=== PATIENT | female | born 1960 | race Caucasian/White ===

== ENCOUNTER 2017-10-22 14:16 | Emergency (ER) | payer OTHER ==
[~2017-10-22] VITALS: Ht 154.9 cm; Wt 137.0 kg
[2017-10-22 14:19] VITALS: TEMP 36.2; Ht 154.9 cm; Wt 137.0 kg
[2017-10-22] MEDS ORDERED: SODIUM CHLORIDE 0.9% 1000ML 1,000 ML IV STA (14:30)
[2017-10-22] MEDS ORDERED: ONDANSETRON INJ 2 MG/ML 2 ML VIAL IV STA ×2 (14:30→18:19)
[2017-10-22] MEDS ORDERED: MoRPHine SULFATE 10 MG/ML CARP/VIAL IV STA ×2 (14:30→18:19)
[2017-10-22] MEDS ORDERED: CZR50 PO (15:00)
[2017-10-22] MEDS ORDERED: FURO-85 PO (15:00)
[2017-10-22 15:12] LABS: BASO % 0.2 %; BASO ABS # 0.02 K/uL (0-0.2); EOS % 0.5 %; EOS ABS # 0.04 K/uL (0-0.5); HEMATOCRIT 41.5 % (37-47); HEMOGLOBIN 14.8 g/dL (12.0-16.0); IG# 0.01 K/uL (0.00-0.02); LYMPH % 14.1 %; LYMPH ABS # 1.21 K/uL (1.2-3.4); MEAN CELL VOLUME 89.6 fL (80-100); MEAN CORPUSCULAR HGB CONC 35.7 g/dl (32-36); MEAN PLATELET VOLUME 11.1 fL (7.4-10.4); MONO % 4.1 %; MONO ABS # 0.35 K/uL (0.11-0.59); NEUT ABS # 6.94 K/uL (1.4-6.5); PLATELET COUNT 266 K/uL (130-400); RED CELL DISTRIBUTION WIDTH CV 12.2 % (11.5-14.5); RED CELL DISTRIBUTION WIDTH SD 39.7 fL (36.4-46.3); WHITE BLOOD COUNT 8.57 K/uL (4.8-10.8)
[2017-10-22 15:32] LABS: ALBUMIN 3.4 gm/dl (3.4-5.0); CALCIUM 9.4 mg/dl (8.5-10.1); CREATININE 0.76 mg/dl (0.60-1.20); POTASSIUM 3.4 mmol/L (3.5-5.1)
[2017-10-22 15:34] LABS: TOTAL PROTEIN 7.8 gm/dl (6.4-8.2)
--- NOTE | 2017-10-22 15:57 | DIAGNOSTIC IMAGING REPORT ---
ABDOMEN 2VIEW W/PA CHEST RTN CLINICAL HISTORY: 57 years-old Female presenting with abdominal pain/nausea/vomiting. TECHNIQUE: PA view of the chest and supine and upright views of the abdomen were obtained. COMPARISON: None. FINDINGS: Image quality is degraded by patient body habitus. Atherosclerosis of the aortic arch. Cardiac silhouette top normal in size. Lungs and pleural spaces clear. Cholecystectomy clips noted. Evidence of prior hernia repair with extensive coil bjorn. Additional surgical clip projects over the midline pelvis. A loop of small bowel in the right lower quadrant has an apparent diameter over 4 cm this is likely affected by magnification. No other pathologically dilated bowel. No gross pneumoperitoneum. Allowing for bowel gas and stool, no calcifications to suggest nephrolithiasis. Degenerative changes of the spine. IMPRESSION: 1. No acute cardiopulmonary disease. 2. Apparent dilated small bowel in the right lower quadrant. This is likely exaggerated due to magnification. No convincing evidence of bowel obstruction or free air allowing for image quality. Electronically signed by: Olu Gann M.D. 10/22/2017 3:56 PM Dictated Date/Time: 10/22/2017 3:53 PM
--- NOTE | 2017-10-22 16:29 | EMERGENCY ROOM VISIT NOTE ---
ED Visit Note First contact with patient: 14:23 I did evaluate and examine this patient myself. I did guide management for the patient. I agree with the APC's assessment as discussed. Please see the APC's dictation for further details. I did independently review the x-rays and blood work. There is no evidence of obstruction on x-ray but she does have tenderness over her right lower quadrant. We will obtain a CT scan for further evaluation.
--- NOTE | 2017-10-22 20:00 | DIAGNOSTIC IMAGING REPORT ---
CT SCAN OF THE ABDOMEN AND PELVIS WITHOUT CONTRAST CLINICAL HISTORY: Right lower quadrant abdominal pain. Hernia. History of bowel obstruction. COMPARISON STUDY: Conventional radiographic study dated 10/22/2017 TECHNIQUE: CT scan of the abdomen and pelvis was performed from the lung bases to the proximal femurs. Images are reviewed in the axial, sagittal, and coronal planes. IV contrast was not administered for this examination. A dose lowering technique was utilized adhering to the principles of ALARA. CT DOSE: 1960.29 mGy.cm FINDINGS: Lower chest: The heart is normal in size and configuration, without pericardial effusion. The lung bases and pleural spaces are clear. Liver: The unenhanced liver is normal in size, contour, and attenuation. There is no intrahepatic biliary ductal dilatation. Gallbladder: Surgically absent Spleen: Normal in size and attenuation. Pancreas: Unremarkable. Adrenal glands: Unremarkable. Kidneys: No renal, ureteral, or bladder calculi are visualized. Bowel: There are no transition zones to indicate bowel obstruction. There is a large ventral hernia with a neck measuring 7.5 cm. This contains both colonic and small bowel loops. There is evidence for trace fluid within the hernia sac, as well as moderate bowel wall thickening involving the distal ileum. There is tethering of the ascending colon as it exits the hernia sac. Significant obstruction is unlikely to be present as contrast is visualized within the ascending colon distal to the hernia sac. Peritoneum: There is no intraperitoneal free air or abdominal ascites. Vasculature: The abdominal aorta is normal in course and caliber. Adenopathy: None. Pelvic viscera: The bladder, and pelvic viscera are unremarkable. Skeletal structures: No destructive osseous lesions are seen. IMPRESSION: 1. Large ventral hernia containing both colon and small bowel loops. 2. There is a small amount of fluid within the hernia sac, and there is moderate bowel wall thickening involving distal ileal loops within the hernia sac. The findings are indicative of a nonspecific enteritis. 3. No evidence of free intraperitoneal air 4. No renal, ureteral, or bladder calculi are visualized. Electronically signed by: Atilio Hankins M.D. 10/22/2017 7:59 PM Dictated Date/Time: 10/22/2017 7:49 PM
[2017-10-22] MEDS ORDERED: ONDANSETRON HOME PACK 4MG OD TAB PO ONE (20:15)
[2017-10-22] MEDS ORDERED: ONDA4TAB10 SL (20:18)
--- NOTE | 2017-10-22 20:20 | EMERGENCY ROOM VISIT NOTE ---
History First contact with patient: 14:23 Chief Complaint: DIARRHEA Stated Complaint: DIARRHEA,VOMITING,STOMACH PAINS Nursing Triage Summary: pt c/o diffuse abd cramping and n/v/d since eating frozen dinner last night and is concerned for food poisoning History of Present Illness The patient is a 57 year old female who presents to the Emergency Room with complaints of nausea vomiting and diarrhea for the past 24 hours. The patient states that she ate a frozen bag of broccoli yesterday morning and within 15 minutes she started with her symptoms. The patient denies having abdominal pain until she started vomiting. She thinks that her stomach is sore from the vomiting. She also states that she has a hernia in the right lower quadrant also tends to bother her when she vomits. The patient also admits to just watery diarrhea. She does admit to having a bowel obstruction in the past. The patient denies any fever. The patient denies any urinary symptoms of frequency, urgency or dysuria. The patient denies any history of kidney stones. The patient denies any back pain. Review of Systems 10 system review was performed and was negative unless stated otherwise history of present illness. Past Medical/Surgical History Bowel obstruction, hypertension, hernia, hysterectomy, cholecystectomy, knee replacement, breast reduction Social History Smoking Status: Never Smoker Smokeless Tobacco Use: No Alcohol Use: none Drug Use: none Housing Status: lives with family ([facility]) Occupation Status: unemployed (. He is as he was here) Current/Historical Medications Scheduled Furosemide (Lasix), 20 MG PO DAILY Losartan Potassium (Losartan Potassium), 50 MG PO DAILY Physical Exam Vital Signs Date Time Temp Pulse Resp B/P (MAP) Pulse Ox O2 Delivery O2 Flow Rate FiO2 10/22/17 18:16 71 20 151/83 99 Room Air 10/22/17 16:31 60 20 159/81 100 Room Air 10/22/17 14:19 36.2 80 18 175/123 97 Room Air Physical Exam GENERAL: Morbidly obese 57-year-old white female appears in no acute distress. MENTAL Status: Alert and oriented 3. MOUTH: Mucosa is dry NECK: Supple, no lymphadenopathy noted. No carotid bruits noted. LUNGS: Clear auscultation without wheezes rales or rhonchi. CARDIAC: Regular rate and rhythm without murmur. Pulses is full and equal throughout. BACK: No CVA tenderness noted. ABDOMEN: The patient has a large hernia in the right lower quadrant. Positive bowel sounds all 4 quadrants. Soft, mild generalized tenderness to palpation throughout. EXTREMITIES: No cyanosis or edema noted. Medical Decision & Procedures ER Provider Diagnostic Interpretation: CT SCAN OF THE ABDOMEN AND PELVIS WITHOUT CONTRAST CLINICAL HISTORY: Right lower quadrant abdominal pain. Hernia. History of bowel obstruction. COMPARISON STUDY: Conventional radiographic study dated 10/22/2017 TECHNIQUE: CT scan of the abdomen and pelvis was performed from the lung bases to the proximal femurs. Images are reviewed in the axial, sagittal, and coronal planes. IV contrast was not administered for this examination. A dose lowering technique was utilized adhering to the principles of ALARA. CT DOSE: 1960.29 mGy.cm FINDINGS: Lower chest: The heart is normal in size and configuration, without pericardial effusion. The lung bases and pleural spaces are clear. Liver: The unenhanced liver is normal in size, contour, and attenuation. There is no intrahepatic biliary ductal dilatation. Gallbladder: Surgically absent Spleen: Normal in size and attenuation. Pancreas: Unremarkable. Adrenal glands: Unremarkable. Kidneys: No renal, ureteral, or bladder calculi are visualized. Bowel: There are no transition zones to indicate bowel obstruction. There is a large ventral hernia with a neck measuring 7.5 cm. This contains both colonic and small bowel loops. There is evidence for trace fluid within the hernia sac, as well as moderate bowel wall thickening involving the distal ileum. There is tethering of the ascending colon as it exits the hernia sac. Significant obstruction is unlikely to be present as contrast is visualized within the ascending colon distal to the hernia sac. Peritoneum: There is no intraperitoneal free air or abdominal ascites. Vasculature: The abdominal aorta is normal in course and caliber. Adenopathy: None. Pelvic viscera: The bladder, and pelvic viscera are unremarkable. Skeletal structures: No destructive osseous lesions are seen. IMPRESSION: 1. Large ventral hernia containing both colon and small bowel loops. 2. There is a small amount of fluid within the hernia sac, and there is moderate bowel wall thickening involving distal ileal loops within the hernia sac. The findings are indicative of a nonspecific enteritis. 3. No evidence of free intraperitoneal air 4. No renal, ureteral, or bladder calculi are visualized. Electronically signed by: Atilio Hankins M.D. 10/22/2017 7:59 PM Dictated Date/Time: 10/22/2017 7:49 PM ABDOMEN 2VIEW W/MARY CHEST RTN CLINICAL HISTORY: 57 years-old Female presenting with abdominal pain/nausea/vomiting. TECHNIQUE: PA view of the chest and supine and upright views of the abdomen were obtained. COMPARISON: None. FINDINGS: Image quality is degraded by patient body habitus. Atherosclerosis of the aortic arch. Cardiac silhouette top normal in size. Lungs and pleural spaces clear. Cholecystectomy clips noted. Evidence of prior hernia repair with extensive coil bjorn. Additional surgical clip projects over the midline pelvis. A loop of small bowel in the right lower quadrant has an apparent diameter over 4 cm this is likely affected by magnification. No other pathologically dilated bowel. No gross pneumoperitoneum. Allowing for bowel gas and stool, no calcifications to suggest nephrolithiasis. Degenerative changes of the spine. IMPRESSION: 1. No acute cardiopulmonary disease. 2. Apparent dilated small bowel in the right lower quadrant. This is likely exaggerated due to magnification. No convincing evidence of bowel obstruction or free air allowing for image quality. Electronically signed by: Olu Gann M.D. 10/22/2017 3:56 PM Dictated Date/Time: 10/22/2017 3:53 PM The status of this report is Signed. Draft = Not yet reviewed or approved by Radiologist. Signed = Reviewed and approved by Radiologist. <AttendingPhy></AttendingPhy> <FamilyPhy>No Doctor, Assigned</FamilyPhy> < PrimaryPhy>No Doctor, Assigned</PrimaryPhy> <UnitNumber>[id number]</UnitNumber> <VisitNumber>[id number]</VisitNumber> <PatientName>BELLA OLGUIN</ PatientName> <DateOfBirth>1960</DateOfBirth> <Location>[facility]</Location> < ServiceDate>10/22/17</ServiceDate> <MNE>ESINDI</MNE> <OrderingPhy>Shonda Lizarraga PA-C</OrderingPhy> <OrderingPhyMNE>f rep ord dr lezama</OrderingPhyMNE> < DictatingPhyMNE>f rep dict dr lezama</DictatingPhyMNE> <CCListMNE>f rep ct mne</ CCListMNE> <AdmittingPhyMNE>f pt admit dr lezama</AdmittingPhyMNE> <AttendingPhyMNE >f pt attend dr lezama</AttendingPhyMNE> <ConsultingPhyMNE>f pt consult dr lezama</ConsultingPhyMNE> <FamilyPhyMNE>f pt fam dr lezama</FamilyPhyMNE> <OtherPhyMNE>f pt other dr lezama</OtherPhyMNE> < PrimaryPhyMNE>f pt prim care dr lezama</PrimaryPhyMNE> <ReferringPhyMNE>f pt referring Laboratory Results 10/22/17 14:54 Red Blood Count 4.63, Mean Corpuscular Volume 89.6, Mean Corpuscular Hemoglobin 32.0, Mean Corpuscular Hemoglobin Concent 35.7, Mean Platelet Volume 11.1, Neutrophils (%) (Auto) 81.0, Lymphocytes (%) (Auto) 14.1, Monocytes (%) (Auto) 4.1, Eosinophils (%) (Auto) 0.5, Basophils (%) (Auto) 0.2, Neutrophils # (Auto) 6.94, Lymphocytes # (Auto) 1.21, Monocytes # (Auto) 0.35, Eosinophils # (Auto) 0.04, Basophils # (Auto) 0.02 10/22/17 14:54 Test 10/22/17 14:54 10/22/17 16:05 White Blood Count 8.57 K/uL (4.8-10.8) Red Blood Count 4.63 M/uL (4.2-5.4) Hemoglobin 14.8 g/dL (12.0-16.0) Hematocrit 41.5 % (37-47) Mean Corpuscular Volume 89.6 fL (80-100) Mean Corpuscular Hemoglobin 32.0 pg (25-34) Mean Corpuscular Hemoglobin Concent 35.7 g/dl (32-36) Platelet Count 266 K/uL (130-400) Mean Platelet Volume 11.1 fL (7.4-10.4) Neutrophils (%) (Auto) 81.0 % Lymphocytes (%) (Auto) 14.1 % Monocytes (%) (Auto) 4.1 % Eosinophils (%) (Auto) 0.5 % Basophils (%) (Auto) 0.2 % Neutrophils # (Auto) 6.94 K/uL (1.4-6.5) Lymphocytes # (Auto) 1.21 K/uL (1.2-3.4) Monocytes # (Auto) 0.35 K/uL (0.11-0.59) Eosinophils # (Auto) 0.04 K/uL (0-0.5) Basophils # (Auto) 0.02 K/uL (0-0.2) RDW Standard Deviation 39.7 fL (36.4-46.3) RDW Coefficient of Variation 12.2 % (11.5-14.5) Immature Granulocyte % (Auto) 0.1 % Immature Granulocyte # (Auto) 0.01 K/uL (0.00-0.02) Anion Gap 7.0 mmol/L (3-11) Est Creatinine Clear Calc Drug Dose 106.3 ml/min Estimated GFR () 100.2 Estimated GFR (Non- 86.5 BUN/Creatinine Ratio 14.4 (10-20) Calcium Level 9.4 mg/dl (8.5-10.1) Total Bilirubin 0.7 mg/dl (0.2-1) Direct Bilirubin 0.1 mg/dl (0-0.2) Aspartate Amino Transf (AST/SGOT) 16 U/L (15-37) Alanine Aminotransferase (ALT/SGPT) 33 U/L (12-78) Alkaline Phosphatase 111 U/L (45-117) Total Protein 7.8 gm/dl (6.4-8.2) Albumin 3.4 gm/dl (3.4-5.0) Lipase 64 U/L (73-393) Urine Color YELLOW Urine Appearance CLEAR (CLEAR) Urine pH 7.5 (4.5-7.5) Urine Specific [place] 1.009 (1.000-1.030) Urine Protein NEG (NEG) Urine Glucose (UA) NEG (NEG) Urine Ketones NEG (NEG) Urine Occult Blood NEG (NEG) Urine Nitrite NEG (NEG) Urine Bilirubin NEG (NEG) Urine Urobilinogen NEG (NEG) Urine Leukocyte Esterase NEG (NEG) Medications Administered Medications (Trade) Dose Ordered Sig/Svetlana Route Start Time Stop Time Status Last Admin Dose Admin Morphine Sulfate (MoRPHine SULFATE INJ) 6 mg NOW STAT IV 10/22/17 14:30 10/22/17 14:34 DC 10/22/17 15:04 6 MG Ondansetron HCl (Zofran Inj) 4 mg NOW STAT IV 10/22/17 14:30 10/22/17 14:34 DC 10/22/17 15:03 4 MG Sodium Chloride 1,000 ml @ 999 mls/hr Q1H1M STAT IV 10/22/17 14:30 10/22/17 15:30 DC 10/22/17 15:00 999 MLS/HR Morphine Sulfate (MoRPHine SULFATE INJ) 6 mg NOW STAT IV 10/22/17 18:19 10/22/17 18:20 DC 10/22/17 18:25 6 MG Ondansetron HCl (Zofran Inj) 4 mg NOW STAT IV 10/22/17 18:19 10/22/17 18:20 DC 10/22/17 18:25 4 MG ED Course The patient was evaluated. IV access was obtained. The patient was given 1 L normal saline wide-open. The patient was given morphine 6 mg IV and Zofran 4 mg IV push. CBC and differential, renal profile, LFTs and lipase levels were ordered. Urinalysis was ordered. Abdominal series x-ray was ordered and interpreted by the radiologist and myself as above without any findings of obstruction there were dilated loops of bowel. This is in the area of her hernia.. Labs are reviewed and were unremarkable. Urinalysis was negative. The patient was independently evaluated by Dr. Carvajal who agree with treatment plan. We will proceed with the CT of the abdomen with oral contrast that she is allergic to the IV contrast. The patient was reevaluated on several occasions. The patient started getting increased pain and nausea therefore she was given additional 6 mg of morphine IV and Zofran [address] was interpreted by the radiologist without any evidence of bowel obstruction. Signs of enteritis noted. The patient was informed of the findings. The patient was given a Zofran home pack to take as needed for nausea. The patient was discharged home in stable condition with a family member driving. Medical Decision Differential diagnosis include bowel obstruction, viral gastroenteritis, diverticulitis, [place] Drug Monitoring Program Search Results: patient reviewed within database Medication Reconcilliation Current Medication List: was personally reviewed by me Blood Pressure Screening Patient's blood pressure: Elevated blood pressure Blood pressure disposition: Elevated BP felt to be situational Impression Primary Impression: Viral gastroenteritis Departure Information Dispostion Home / Self-Care Condition GOOD Prescriptions Ondasetron Odt (ZOFRAN ODT) 4 Mg Tab 4 MG SL Q6H for Nausea, #10 TAB Prov: Shonda Lizarraga PA-C 10/22/17 Referrals No Doctor, Assigned (PCP) Forms HOME CARE DOCUMENTATION FORM, IMPORTANT VISIT INFORMATION, WORK / SCHOOL INSTRUCTIONS Patient Instructions ED Diet [place], ED Nausea Vomiting, [facility] Additional Instructions Push fluids. Follow bland diet. Advance diet slowly as tolerated. Take Zofran as needed for nausea. If symptoms persist or worsen, return to ER.
[2017-10-22 20:22] VITALS: BP 156/92; PULSE 68; O2SAT 98
== END 2017-10-22 20:23 | disposition home or self-care (01) ==
LOC: C.EDB 14:17 → C.EDC 20:23
DX: A08.4 Viral intestinal infection, unspecified (principal); I10 Essential (primary) hypertension; K56.609 Unspecified intestinal obstruction, unspecified as to partial versus complete obstruction; Z79.899 Other long term (current) drug therapy; Z90.710 Acquired absence of both cervix and uterus; Z90.49 Acquired absence of other specified parts of digestive tract

== ENCOUNTER 2021-06-24 08:56 | Inpatient (IN) ==
--- NOTE | 2021-06-24 09:38 | Emergency Department Note ---
Impression & Plan Seroma, History of hernia surgery, Abdominal pain ED Provider Note NAME: BELLA OLGUIN AGE: 60 SEX: F : 1960 ARRIVES VIA: Walk-In INFORMANT: Patient, ED PROVIDER(S): Acosta Orellana MD Chief Complaint: Abdominal pain HPI: Patient does present due to concern for possible infection to a recent hernia repair area that was completed on April 25. Patient subsequently had drains removed 3 weeks later. Patient does not have any acute drainage but does have some burning and discomfort to the area. It is nonradiating. It is fairly constant although worse with palpation or with standing upright. The patient does feel a heaviness and feels like a "brick" in the bottom of her abdomen. Patient is not taken anything at home. The patient states he is currently watching her son's police dogs. Patient states that she had fever to 103 last week but has not had any subsequent fever. The patient did get a one-time dose of Covid vaccine but states that she had a vaccination reaction did not get a second dose. Patient denies any alcohol or tobacco use. The patient's pain is primarily burning in the lower abdomen. Patient does have a prior history of cholecystectomy as well. ROS: See HPI for pertinent positives and negatives. A total of 10 systems were reviewed and otherwise negative. Past medical history: See below Surgical history: See below Social history: See below Physical Exam: GENERAL: NAD, wearing a mask, non-toxic. EYE EXAM: Normal conjunctiva. PERRL, no anisocoria and EOM's grossly intact w/o pain. NECK: Supple, no nuchal rigidity, no adenopathy, non-tender. No signs of meni ngismus. LUNGS: Clear to auscultation. Normal chest wall mechanics. HEART: NSR, no MRG. ABDOMEN: Abdomen soft, comfort in the right abdomen upper and lower, induration over the right lower abdomen well-healed incisional site, no active drainage, normo-active bowel sounds, no masses, no rebound or guarding. BACK: No CVA TTP. SKIN: No rashes and no bruising. UPPER EXTREMITIES: Upper extremities are grossly normal. LOWER EXTREMITIES: Grossly normal, no edema. NEURO EXAM: A&O x3, cranial nerves II-XII grossly intact, normal speech, moves all 4 extremities on command w/o issue. Differential diagnoses: Appendicitis, ovarian cyst, ovarian torsion, ectopic , TOA, PID, infections, diverticulitis, UTI, obstruction, mesenteric ischemia, aortic pathology, inflammatory bowel disease, renal colic, PUD, pancreatitis, biliary pathology, hernia, volvulus, constipation, as well as other pathologies. Course: Patient was seen and evaluated the bedside. Full history physical exam was performed. Imaging Studies: See Below Cardiac monitoring: An order was placed for continuous cardiac monitoring. The monitor shows a rate of 87 with sinus rhythm. MDM: Patient was seen due to concern for abdominal pain. Blood work was obtained along with CT abdomen pelvis. Patient treated symptomatically. Patient has normal white count H&H and platelet count. Kidney function is unremarkable. Covid negative. CT does show concern for large fluid collection in the right lower abdomen. I did speak the on-call hospitalist Dr. Sky. The patient will be admitted. He will order antibiotics as a precaution. Past Med/Surg History Medical History Anxiety Arthritis GERD (gastroesophageal reflux disease) History of COVID-19 Dx 09/2020 > symptoms at time of cough, dyspnea, fever > resolved Hx of atrial fibrillation without current medication ? a. fib vs "cardiac event" remote hx 10+ years ago, no known recurrence/issues, s/p unremarkable cardiac cath (2014) > patient subsequently had panniculectomy/ventral hernia repair in 2017 at [facility] without issue, sinus rhythm on most recent EKG 09/25/20 Morbid obesity Restless leg syndrome Sleep apnea CPAP Surgical History H/O bilateral breast reduction surgery History of abdominal surgery Panniculectomy, ventral hernia repair (03/25/18): Grade view 1, MAC #3, ETT 7.5 at [facility] History of cardiac cath 2014 > no stents (confirmed with [facility] that most recent cardiac cath was 2014) History of section x2 History of cholecystectomy History of colonoscopy History of herniorrhaphy Ventral hernia x2 History of hysterectomy History of tooth extraction History of total knee replacement Right Nausea and vomiting after administration of anesthetic agent Family History Other Kidney stone No family history of adverse response to anesthesia Social History Smoking Status: Never smoker Second Hand Exposure: No; Hx Alcohol Use: No Hx Substance Use: No Preferred Language: Swedish Communication Ability: Effective Bag Grader Required: No Beliefs That Will Affect Care: None Current Living Situation: Alone Other Information That Helps Us Care for You: No Feels Safe at Home: Yes Safety Concerns: Feels Safe At This Time Assistive Devices: Glasses Allergies Allergies Allergy/AdvReac Type Severity Reaction Status Date / Time Iodinated Contrast Media Allergy Severe Cardiac Verified 06/24/21 10:19 arrest phentermine AdvReac Mild Abdominal Verified 06/24/21 10:19 pain Home Meds Home Medications Medication Instructions Recorded Confirmed furosemide 20 mg tablet (Lasix) 20 mg PO DAILY PRN 02/19/21 06/24/21 omeprazole 20 mg capsule,delayed 20 mg PO HS 02/19/21 06/24/21 release sertraline 100 mg tablet 100 mg PO QAM 02/19/21 06/24/21 albuterol sulfate 90 mcg/actuation 1 puff INHALATION Q4 PRN 06/24/21 06/24/21 aerosol inhaler (Ventolin HFA) ibuprofen 800 mg tablet 800 mg PO TID PRN 06/24/21 06/24/21 ondansetron HCl 4 mg tablet 4 mg PO Q6 PRN 06/24/21 06/24/21 Previous Rx's Medication Instructions Recorded hydrocodone 5 mg-acetaminophen 325 1 - 2 tab PO .q4h- q6h PRN #10 tab 04/25/21 mg tablet Results & Data (ED) Vital Signs Vital Signs - 24 hr 06/24/21 09:14 06/24/21 10:30 06/24/21 11:13 Temperature 36.9 C Temperature Source Oral Pulse Rate 85 66 Pulse Rate from SpO2 Sensor 66 73 Respiratory Rate 18 13 19 Blood Pressure 165/96 H 125/107 H Blood Pressure Mean 119 113 Pulse Oximetry 97 98 97 Oxygen Delivery Method Room Air Sepsis Recent Fever Within 48 Hours No Sepsis New/Unexplained Change in Mental Status No Sepsis Action Taken by Nursing No Action Required 06/24/21 11:30 06/24/21 12:00 06/24/21 12:30 Temperature Temperature Source Pulse Rate 74 74 76 Pulse Rate from SpO2 Sensor 73 74 76 Respiratory Rate 13 15 16 Blood Pressure Blood Pressure Mean Pulse Oximetry 95 95 96 Oxygen Delivery Method Sepsis Recent Fever Within 48 Hours Sepsis New/Unexplained Change in Mental Status Sepsis Action Taken by Nursing 06/24/21 12:57 Temperature Temperature Source Pulse Rate 74 Pulse Rate from SpO2 Sensor Respiratory Rate 20 Blood Pressure 139/75 Blood Pressure Mean 96 Pulse Oximetry 99 Oxygen Delivery Method Room Air Sepsis Recent Fever Within 48 Hours Sepsis New/Unexplained Change in Mental Status Sepsis Action Taken by Assisted Medications Current Medication List: was personally reviewed by me Laboratory Data Attestation: I reviewed the patient's lab results. Result diagrams: 06/24/21 Unknown 06/24/21 Unknown Administered Medications Hydrocodone Bitart/Acetaminophen (Hydrocodone/Acetamophen 5/325mg Tab) 1 - 2 tab PO Q4H PRN PRN Reason: pain Stop: 07/08/21 14:46 Last Admin: 06/24/21 15:48 Dose: 2 tab Documented by: [id number] Lactated Ringer's (Lr) 1,000 mls @ 100 mls/hr IV .Q10H BETHANIE Stop: 07/24/21 14:46 Last Admin: 06/24/21 15:48 Dose: 100 mls/hr Documented by: [id number] Ondansetron HCl (Ondansetron 4 Mg Od Tab) 4 mg PO Q6 PRN PRN Reason: Nausea Stop: 07/24/21 15:27 Last Admin: 06/24/21 16:29 Dose: 4 mg Documented by: [id number] Discontinued Medications Sodium Chloride (Nss) 500 mls @ 999 mls/hr IV .Q31M STA Stop: 06/24/21 10:29 Last Infusion: 06/24/21 12:58 Dose: 0 mls/hr Documented by: [id number] Admin: 06/24/21 10:15 Dose: 999 mls/hr Documented by: [id number] Piperacillin Sod/Tazobactam (Sod 4.5 gm/ Dextrose) 120 mls @ 230 mls/hr IV 1530 ONE; Protocol Stop: 06/24/21 16:01 Last Infusion: 06/24/21 16:30 Dose: 0 mls/hr Documented by: [id number] Admin: 06/24/21 15:47 Dose: 230 mls/hr Documented by: [id number] Morphine Sulfate (Morphine Sulfate 4 Mg/Ml 1 Ml Carp\\Vial) 4 mg IV NOW STA Stop: 06/24/21 10:00 Last Admin: 06/24/21 10:15 Dose: 4 mg Documented by: [id number] Ondansetron HCl (Ondansetron Inj 2 Mg/Ml 2 Ml Vial) 4 mg IV NOW STA Stop: 06/24/21 10:00 Last Admin: 06/24/21 10:15 Dose: 4 mg Documented by: [id number] Imaging Data Radiologist's Impression: Abdomen/Pelvis CT 06/24/21 10:16 CT SCAN OF THE ABDOMEN AND PELVIS WITHOUT IV CONTRAST CLINICAL HISTORY: Lower abdominal pain/induration. Previous hernia surgery with recent drainage. COMPARISON STUDY: No priors. TECHNIQUE: CT scan of the abdomen and pelvis is performed from the lung bases to the proximal femora. Images are reviewed in the axial, sagittal, and coronal planes. IV contrast was not administered for this examination. Note that the examination was performed in suboptimal fashion without IV contrast. A dose lowering technique was utilized adhering to the principles of ALARA. CT DOSE: 2092.16 mGy.cm FINDINGS: Lung bases: The heart is normal in size and without pericardial effusion. The lung bases are clear. Liver: The unenhanced liver is mildly enlarged measuring 18.5 cm in length. The liver demonstrates diffusely diminished attenuation consistent with hepatic steatosis. There is minimal central intrahepatic biliary ductal dilatation. Gallbladder: Surgically absent noting clips in the gallbladder fossa. Spleen: The spleen is mildly enlarged measuring 14.6 cm in length. Pancreas: The unenhanced pancreas is mildly atrophic and grossly unremarkable. Adrenal glands: A 14 mm adenoma of the left adrenal gland is unchanged. The right adrenal gland is normal in appearance. Kidneys: The unenhanced kidneys are normal in size and without hydronephrosis. There are no renal calculi identified. There is no evidence of contour deforming renal mass lesion. Abdominal vasculature: The abdominal aorta is normal in course and caliber. Bowel: The duodenum fails to cross midline, and the colon is located within the left abdomen. This indicates congenital malrotation. No bowel obstruction is seen. The appendix is well-visualized and normal. Peritoneum: There is no intraperitoneal free air or abdominal ascites. There is evidence of previous ventral hernia repair. There is a large thick walled fluid collection within the ventral abdominal/pelvic pannus superficial to the peritoneal reflection at the hernia repair site. This measures approximately 12 x 8.5 x 17 cm as seen on image #292. There are small foci of gas within this collection. No intraperitoneal extension is seen. There is inflammatory change in the pelvic pannus below the collection with overlying dermal thickening. Mild soft tissue induration is also seen within the pannus of the right lower flank. Lymphadenopathy: None. Pelvic viscera: The bladder is decompressed and grossly unremarkable. The uterus is diminutive versus surgically absent. No adnexal lesion is seen. Venous varicosities are noted in the left groin. Skeletal structures: The skeletal structures are osteopenic. There is mild lumbosacral spondylosis. No lytic or blastic lesions are seen. IMPRESSION: 1. There is postoperative change from previous ventral hernia repair. 2. There is a large (approximately 12 x 8.5 x 17 cm) thick-walled fluid containing collection within the lower abdominal/pelvic panus superficial to the peritoneal reflection and the hernia repair site. This is indeterminant, and could represent a large seroma or liquefied hematoma. Abscess is not excluded. Foci of gas within the collection are nonspecific and could be related to recent instrumentation or infection. Clinical correlation will be required. 3. There is induration within the pelvic pannus below the collection with overlying dermal thickening. Correlate clinically for evidence of cellulitis. 4. No acute intraperitoneal abnormality is identified. 5. Hepatomegaly and hepatic steatosis. 6. Malrotation of the bowel is again noted. There is no obstruction. 7. Additional findings as above. ACT 112: Negative or not required by law. Electronically signed by: Jorje Shaikh M.D. 06/24/2021 12:09 PM Discharge Plan Visit Data Chief Complaint: Infection Stated Complaint: INFECTION ED Provider: Acosta Orellana Discharge Problem: Seroma, History of hernia surgery, Abdominal pain Patient Disposition: Admitted As Inpatient Discharge Instructions Interventions: ED Discharge Assessment Last Done: 06/24/21 14:26 Discharge Problem: Abdominal pain Qualifiers: Abdominal location: lower abdomen, unspecified Qualified Code(s): R10.30 - Lower abdominal pain, unspecified
[2021-06-24] MEDS ORDERED: ONDANSETRON INJ 2 MG/ML 2 ML VIAL IV STA (09:59)
[2021-06-24] MEDS ORDERED: SODIUM CHLORIDE 0.9% 500 ML IV STA (09:59)
[2021-06-24] MEDS ORDERED: MoRPHine SULFATE 4 MG/ML 1 ML CARP\\VIAL IV STA (09:59)
[2021-06-24 10:28] LABS: Basophils # (auto) 0.01 K/uL (0-0.2); Basophils % (auto) 0.1 %; Eosinophils # (auto) 0.04 K/uL (0-0.5); Eosinophils % (auto) 0.5 %; Hemoglobin 13.1 g/dL (12.0-16.0); Immature Granulocytes # (auto) 0.02 K/uL (0.00-0.02); Immature Granulocytes % (auto) 0.2 %; Lymphocytes % (auto) 13.9 %; Mean Corpuscular Hgb Conc 32.8 g/dL (32-36); Mean Corpuscular Volume 91.5 fL (80-100); Mean Platelet Volume 10.1 fL (7.4-10.4); Monocytes # (auto) 0.42 K/uL (0.11-0.59); Monocytes % (auto) 4.9 %; Neutrophils # (auto) 6.93 K/uL (1.4-6.5); Neutrophils % (auto) 80.4 %; Platelet Count 375 K/uL (130-400); RDW Coefficient of Variation 12.7 % (11.5-14.5); RDW Standard Deviation 43.1 fL (36.4-46.3); Red Blood Count 4.37 M/uL (4.2-5.4); White Blood Count 8.62 K/uL (4.8-10.8)
[2021-06-24 10:47] LABS: Albumin Globulin Ratio 0.6 (0.9-2); BUN Creatinine Ratio 16.6 (10-20); Bilirubin,Total 0.3 mg/dl (0.2-1); Calcium 9.3 mg/dl (8.5-10.1); Creatinine Clr Calc Pharmacy 107.7 ml/min; Est GFR (African American) 101.3 ml/min; Est GFR (Non-African American) 87.4 ml/min; Globulin 4.8 gm/dl (2.5-4.0); Potassium 3.9 mmol/L (3.5-5.1); Total Protein 7.8 gm/dl (6.4-8.2)
--- NOTE | 2021-06-24 12:11 | CT Scan Report ---
CT SCAN OF THE ABDOMEN AND PELVIS WITHOUT IV CONTRAST CLINICAL HISTORY: Lower abdominal pain/induration. Previous hernia surgery with recent drainage. COMPARISON STUDY: No priors. TECHNIQUE: CT scan of the abdomen and pelvis is performed from the lung bases to the proximal femora. Images are reviewed in the axial, sagittal, and coronal planes. IV contrast was not administered for this examination. Note that the examination was performed in suboptimal fashion without IV contrast. A dose lowering technique was utilized adhering to the principles of ALARA. CT DOSE: 2092.16 mGy.cm FINDINGS: Lung bases: The heart is normal in size and without pericardial effusion. The lung bases are clear. Liver: The unenhanced liver is mildly enlarged measuring 18.5 cm in length. The liver demonstrates di ffusely diminished attenuation consistent with hepatic steatosis. There is minimal central intrahepat ic biliary ductal dilatation. Gallbladder: Surgically absent noting clips in the gallbladder fossa. Spleen: The spleen is mildly enlarged measuring 14.6 cm in length. Pancreas: The unenhanced pancreas is mildly atrophic and grossly unremarkable. Adrenal glands: A 14 mm adenoma of the left adrenal gland is unchanged. The right adrenal gland is no rmal in appearance. Kidneys: The unenhanced kidneys are normal in size and without hydronephrosis. There are no renal josue culi identified. There is no evidence of contour deforming renal mass lesion. Abdominal vasculature: The abdominal aorta is normal in course and caliber. Bowel: The duodenum fails to cross midline, and the colon is located within the left abdomen. This in dicates congenital malrotation. No bowel obstruction is seen. The appendix is well-visualized and no rmal. Peritoneum: There is no intraperitoneal free air or abdominal ascites. There is evidence of previous ventral hernia repair. There is a large thick walled fluid collection within the ventral abdominal/pe lvic pannus superficial to the peritoneal reflection at the hernia repair site. This measures approxi mately 12 x 8.5 x 17 cm as seen on image #292. There are small foci of gas within this collection. No intraperitoneal extension is seen. There is inflammatory change in the pelvic pannus below the colle ction with overlying dermal thickening. Mild soft tissue induration is also seen within the pannus of the right lower flank. Lymphadenopathy: None. Pelvic viscera: The bladder is decompressed and grossly unremarkable. The uterus is diminutive versus surgically absent. No adnexal lesion is seen. Venous varicosities are noted in the left groin. Skeletal structures: The skeletal structures are osteopenic. There is mild lumbosacral spondylosis. N o lytic or blastic lesions are seen. IMPRESSION: 1. There is postoperative change from previous ventral hernia repair. 2. There is a large (approximately 12 x 8.5 x 17 cm) thick-walled fluid containing collection within the lower abdominal/pelvic panus superficial to the peritoneal reflection and the hernia repair site. This is indeterminant, and could represent a large seroma or liquefied hematoma. Abscess is not excl uded. Foci of gas within the collection are nonspecific and could be related to recent instrumentatio n or infection. Clinical correlation will be required. 3. There is induration within the pelvic pannus below the collection with overlying dermal thickening . Correlate clinically for evidence of cellulitis. 4. No acute intraperitoneal abnormality is identified. 5. Hepatomegaly and hepatic steatosis. 6. Malrotation of the bowel is again noted. There is no obstruction. 7. Additional findings as above. ACT 112: Negative or not required by law. Electronically signed by: Jorje Shaikh M.D. 06/24/2021 12:09 PM
--- NOTE | 2021-06-24 13:16 | Surgery Consultation ---
Date of Consultation June 24, 2021 Assessment & Plan (1) Seroma: pt is a 60 year-old female who presents to Er with 2 weeks history of lower abdominal pain, pt had open repair ventral hernia with mesh 3 months ago, then pt had drainage seroma 3 weeks after surgery, pt denies fever, no sig nificant abdominal pain now, IMP: fluid collection after ventral hernia repair with mesh, cellulitis, normal WBC, no fever now, plan, I recommend to admit pt to hospital, conservative treatment now, NPO, IV fluid, IV antibiotic, control pain, SCD, will D/W pt's surgeon DR. Ridley tomorrow, pt agrees with the plan, pt would like Dr. Ridley to do her surgery if pt needs surgery. History of Present Illness Reason for Consultation: seroma Requesting Physician: Acosta Grey Attending Physician: Acosta Grey History of Present Illness Chief Complaint: Abdominal pain HPI: Patient does present due to concern for possible infection to a recent hernia repair area that was completed on April 25. Patient subsequently had drains removed 3 weeks later. Patient does not have any acute drainage but does have some burning and discomfort to the area. It is nonradiating. It is fairly constant although worse with palpation or with standing upright. The patient does feel a heaviness and feels like a "brick" in the bottom of her abdomen. Patient is not taken anything at home. The patient states he is currently watching her son's police dogs. Patient states that she had fever to 103 last week but has not had any subsequent fever. The patient did get a one-time dose of Covid vaccine but states that she had a vaccination reaction did not get a second dose. Patient denies any alcohol or tobacco use. The patient's pain is primarily burning in the lower abdomen. Patient does have a prior history of cholecystectomy as well. I ( Pete Mark MD ) got a call for consult fluid collection after repair ventral hernia with mesh, I reviewed pt's H/P, labs, CT scan with pt, pt had panniculectomy, component separation, open ventral hernia repair with mesh , and extensive enterolysis on 03/2021, by Dr. Ridley, 3 weeks later after surgery , pt had drainage for seroma, the drainage was remove 4 weeks ago, now pt has no significant abdominal pain, pt denies fever, no diarrhea, ROS: See HPI for pertinent positives and negatives. A total of 10 systems were reviewed and otherwise negative. Past medical history: See below Surgical history: See below Social history: See below Allergies Allergy/AdvReac Type Severity Reaction Status Date / Time Iodinated Contrast Media Allergy Severe Cardiac Verified 06/24/21 10:19 arrest phentermine AdvReac Mild Abdominal Verified 06/24/21 10:19 pain Home Medications Medication Instructions Recorded Confirmed Type furosemide 20 mg tablet (Lasix) 20 mg PO DAILY PRN 02/19/21 06/24/21 History omeprazole 20 mg capsule,delayed 20 mg PO HS 02/19/21 06/24/21 History release sertraline 100 mg tablet 100 mg PO QAM 02/19/21 06/24/21 History hydrocodone 5 mg-acetaminophen 325 1 - 2 tab PO .q4h- q6h PRN #10 tab 04/25/21 06/24/21 Rx mg tablet albuterol sulfate 90 mcg/actuation 1 puff INHALATION Q4 PRN 06/24/21 06/24/21 History aerosol inhaler (Ventolin HFA) ibuprofen 800 mg tablet 800 mg PO TID PRN 06/24/21 06/24/21 History ondansetron HCl 4 mg tablet 4 mg PO Q6 PRN 06/24/21 06/24/21 History Patient History Medical History Anxiety Arthritis GERD (gastroesophageal reflux disease) History of COVID-19 Dx 09/2020 > symptoms at time of cough, dyspnea, fever > resolved Hx of atrial fibrillation without current medication ? a. fib vs "cardiac event" remote hx 10+ years ago, no known recurrence/issues, s/p unremarkable cardiac cath (2014) > patient subsequently had panniculectomy/ventral hernia repair in 2017 at [facility] without issue, sinus rhythm on most recent EKG 09/25/20 Morbid obesity Restless leg syndrome Sleep apnea CPAP Surgical History H/O bilateral breast reduction surgery History of abdominal surgery Panniculectomy, ventral hernia repair (03/25/18): Grade view 1, MAC #3, ETT 7.5 at [facility] History of cardiac cath 2014 > no stents (confirmed with [facility] that most recent cardiac cath was 2014) History of section x2 History of cholecystectomy History of colonoscopy History of herniorrhaphy Ventral hernia x2 History of hysterectomy History of tooth extraction History of total knee replacement Right Nausea and vomiting after administration of anesthetic agent Family History Other Kidney stone No family history of adverse response to anesthesia Social History Smoking Status: Never smoker Second Hand Exposure: No; Hx Alcohol Use: No Hx Substance Use: No Preferred Language: Gibraltarian Communication Ability: Effective Computer Service Technician Required: No Beliefs That Will Affect Care: None Current Living Situation: Alone Feels Safe at Home: Yes Assistive Devices: CPAP, Denture - Lower and Glasses Review of Systems Constitutional: as per Subjective / HPI Eyes: as per Subjective / HPI Respiratory: as per Subjective / HPI Cardiovascular: as per Subjective / HPI Gastrointestinal: S/P panniculectomy, component separation, open ventral hernia repair with mesh, extensive enterolysis Genitourinary: as per Subjective / HPI Musculoskeletal: as per Subjective / HPI Neurologic: as per Subjective / HPI Psychiatric: as per Subjective / HPI Endocrine: as per Subjective / HPI Hematologic / Lymphatic: as per Subjective / HPI Physical Exam Constitutional: WD/WN, vitals as above Eyes: PERRL, conjunctivae normal, anicteric sclerae Neck: trachea midline, no thyromegaly Respiratory: normal respiratory effort, lungs clear to auscultation Cardiovascular: RRR, no murmur, no edema Gastrointestinal (Abdomen): soft, mild tenderness at lower abdomen, multiple scar on abdomen, , some edema with redness on incision site, no rebound pain, no distend, BS +, no drainage Musculoskeletal: no cyanosis or clubbing, extremities motor strength 5/5 Neurologic: patellar DTR's 2+ bilat, sensation intact Psychiatric: A+Ox3, euthymic affect Results & Data ([facility]) Vital Signs (Past 12 Hours) Vital Signs Temp Pulse Resp BP Pulse Ox 06/24/21 12:57 74 20 139/75 99 06/24/21 12:30 76 16 96 06/24/21 12:00 74 15 95 06/24/21 11:30 74 13 95 06/24/21 11:13 19 97 06/24/21 10:30 66 13 125/107 H 98 06/24/21 09:14 36.9 C 85 18 165/96 H 97 Laboratory Results Abnormal lab results 06/24/21 06/24/21 Range/Units Unknown Unknown Neut # (Auto) 6.93 H (1.4-6.5) K/uL Glucose 113 H (70-99) mg/dl Albumin 3.0 L (3.4-5.0) gm/dl Globulin 4.8 H (2.5-4.0) gm/dl Albumin/Globulin Ratio 0.6 L (0.9-2) Diagnostic Findings CT SCAN OF THE ABDOMEN AND PELVIS WITHOUT IV CONTRAST CLINICAL HISTORY: Lower abdominal pain/induration. Previous hernia surgery with recent drainage. COMPARISON STUDY: No priors. TECHNIQUE: CT scan of the abdomen and pelvis is performed from the lung bases to the proximal femora. Images are reviewed in the axial, sagittal, and coronal planes. IV contrast was not administered for this examination. Note that the examination was performed in suboptimal fashion without IV contrast. A dose lowering technique was utilized adhering to the principles of ALARA. CT DOSE: 2092.16 mGy.cm FINDINGS: Lung bases: The heart is normal in size and without pericardial effusion. The lung bases are clear. Liver: The unenhanced liver is mildly enlarged measuring 18.5 cm in length. The liver demonstrates diffusely diminished attenuation consistent with hepatic steatosis. There is minimal central intrahepatic biliary ductal dilatation. Gallbladder: Surgically absent noting clips in the gallbladder fossa. Spleen: The spleen is mildly enlarged measuring 14.6 cm in length. Pancreas: The unenhanced pancreas is mildly atrophic and grossly unremarkable. Adrenal glands: A 14 mm adenoma of the left adrenal gland is unchanged. The right adrenal gland is normal in appearance. Kidneys: The unenhanced kidneys are normal in size and without hydronephrosis. There are no renal calculi identified. There is no evidence of contour deforming renal mass lesion. Abdominal vasculature: The abdominal aorta is normal in course and caliber. Bowel: The duodenum fails to cross midline, and the colon is located within the left abdomen. This indicates congenital malrotation. No bowel obstruction is seen. The appendix is well-visualized and normal. Peritoneum: There is no intraperitoneal free air or abdominal ascites. There is evidence of previous ventral hernia repair. There is a large thick walled fluid collection within the ventral abdominal/pelvic pannus superficial to the peritoneal reflection at the hernia repair site. This measures approximately 12 x 8.5 x 17 cm as seen on image #292. There are small foci of gas within this collection. No intraperitoneal extension is seen. There is inflammatory change in the pelvic pannus below the collection with overlying dermal thickening. Mild soft tissue induration is also seen within the pannus of the right lower flank. Lymphadenopathy: None. Pelvic viscera: The bladder is decompressed and grossly unremarkable. The uterus is diminutive versus surgically absent. No adnexal lesion is seen. Venous varicosities are noted in the left groin. Skeletal structures: The skeletal structures are osteopenic. There is mild lumbosacral spondylosis. No lytic or blastic lesions are seen. IMPRESSION: 1. There is postoperative change from previous ventral hernia repair. 2. There is a large (approximately 12 x 8.5 x 17 cm) thick-walled fluid containing collection within the lower abdominal/pelvic panus superficial to the peritoneal reflection and the hernia repair site. This is indeterminant, and could represent a large seroma or liquefied hematoma. Abscess is not excluded. Foci of gas within the collection are nonspecific and could be related to recent instrumentation or infection. Clinical correlation will be required. 3. There is induration within the pelvic pannus below the collection with overlying dermal thickening. Correlate clinically for evidence of cellulitis. 4. No acute intraperitoneal abnormality is identified. 5. Hepatomegaly and hepatic steatosis. 6. Malrotation of the bowel is again noted. There is no obstruction. 7. Additional findings as above.
[2021-06-24] MEDS ORDERED: HYDROmorphone INJ 1 MG/ML SYRINGE IV PRN (14:47)
[2021-06-24] MEDS ORDERED: FUROSEMIDE 20 MG TAB PO PRN (14:47)
[2021-06-24] MEDS ORDERED: PIPERACILL/TAZOBAC CONSULT ACTIVE PRN (14:47)
[2021-06-24] MEDS ORDERED: ALBUTEROL HFA 8 GM INHALER INH PRN (14:47)
[2021-06-24] MEDS ORDERED: PIPERACILLIN/TAZOBACTAM 4.5 GM in DEXTROSE 5% 100 ML IV ONE (15:30)
[2021-06-24] MEDS: HYDROCODONE/ACETAMOPHEN 5/325MG TAB PO PRN (15:48)
[2021-06-24] MEDS: LACTATED RINGER'S 1,000 ML IV SCH (15:48)
[2021-06-24] MEDS: ONDANSETRON 4 MG OD TAB PO PRN (16:29)
[2021-06-24 21:00] LABS: Appearance Urine Clear (Clear); Bilirubin Urine Negative (Negative); Blood Urine Negative (Negative); Color Urine Dark Yellow; Glucose Urine UA Negative (Negative); Ketones Urine Trace (Negative); Leukocyte Esterase Urine Negative (Negative); Nitrite Urine Negative (Negative); Protein Urine Negative (Negative); Specific Gravity Urine 1.022 (1.000-1.030); Urobilinogen Urine Negative (Negative); pH Urine 6.5 (4.5-7.5)
[2021-06-24] MEDS ORDERED: METOCLOPRAMIDE HCL INJ 5 MG/ML 2 ML VIAL IV STA (21:20)
[2021-06-24] MEDS: PIPERACILLIN/TAZOBACTAM 4.5 GM in DEXTROSE 5% 100 ML IV SCH (22:10)
[2021-06-24] MEDS: PANTOprazole 40 MG TAB PO SCH (22:11)
[2021-06-25] MEDS: LACTATED RINGER'S 1,000 ML IV SCH ×3 (01:19→16:56)
[2021-06-25] MEDS: PIPERACILLIN/TAZOBACTAM 4.5 GM in DEXTROSE 5% 100 ML IV SCH ×3 (05:26→20:24)
[2021-06-25 06:54] LABS: Basophils # (auto) 0.02 K/uL (0-0.2); Basophils % (auto) 0.3 %; Eosinophils # (auto) 0.05 K/uL (0-0.5); Eosinophils % (auto) 0.8 %; Hematocrit (blood only) 35.4 % (37-47); Hemoglobin 11.6 g/dL (12.0-16.0); Lymphocytes # (auto) 1.03 K/uL (1.2-3.4); Lymphocytes % (auto) 16.2 %; Mean Corpuscular Hemoglobin 29.4 pg (25-34); Mean Corpuscular Hgb Conc 32.8 g/dL (32-36); Mean Corpuscular Volume 89.8 fL (80-100); Mean Platelet Volume 9.8 fL (7.4-10.4); Monocytes % (auto) 6.3 %; Neutrophils # (auto) 4.86 K/uL (1.4-6.5); Neutrophils % (auto) 76.4 %; Platelet Count 308 K/uL (130-400); RDW Coefficient of Variation 12.7 % (11.5-14.5); RDW Standard Deviation 40.9 fL (36.4-46.3); Red Blood Count 3.94 M/uL (4.2-5.4); White Blood Count 6.36 K/uL (4.8-10.8)
[2021-06-25] MEDS: SERTRALINE HCL 100 MG TABLET PO SCH (08:08)
[2021-06-25] MEDS: ONDANSETRON 4 MG OD TAB PO PRN (08:51)
--- NOTE | 2021-06-25 09:58 | Surgery Consultation ---
Date of Consultation June 25, 2021 Assessment & Plan (1) Seroma: suspect infected recurrent seroma. discussed options. pt quite uncomfortable. discussed risks. will take to OR today for drainage of likely infected fluid. continue IV antibiotics. History of Present Illness Attending Physician: Pete Mark MD History of Present Illness pt well known to me. had large hernia repair with biologic mesh 3 years ago ( not 3 months ago). did well.... over the winter got covid and was coughing.... she subsequently started getting abdominal pain and imaging revealed a large seroma. I drained this several weeks ago and placed a drain. over past couple of days pt got redness on lower abdomen and nausea/worsening pain. was admitted yesterday. new imaging shows recurrence of the seroma with some foci of gas. Allergies Allergy/AdvReac Type Severity Reaction Status Date / Time Iodinated Contrast Media Allergy Severe Cardiac Verified 06/24/21 10:19 arrest phentermine AdvReac Mild Abdominal Verified 06/24/21 10:19 pain Home Medications Medication Instructions Recorded Confirmed Type furosemide 20 mg tablet (Lasix) 20 mg PO DAILY PRN 02/19/21 06/24/21 History omeprazole 20 mg capsule,delayed 20 mg PO HS 02/19/21 06/24/21 History release sertraline 100 mg tablet 100 mg PO QAM 02/19/21 06/24/21 History hydrocodone 5 mg-acetaminophen 325 1 - 2 tab PO .q4h- q6h PRN #10 tab 04/25/21 06/24/21 Rx mg tablet albuterol sulfate 90 mcg/actuation 1 puff INHALATION Q4 PRN 06/24/21 06/24/21 History aerosol inhaler (Ventolin HFA) ibuprofen 800 mg tablet 800 mg PO TID PRN 06/24/21 06/24/21 History ondansetron HCl 4 mg tablet 4 mg PO Q6 PRN 06/24/21 06/24/21 History Patient History Medical History Anxiety Arthritis GERD (gastroesophageal reflux disease) History of COVID-19 Dx 09/2020 > symptoms at time of cough, dyspnea, fever > resolved Hx of atrial fibrillation without current medication ? a. fib vs "cardiac event" remote hx 10+ years ago, no known recurrence/issues, s/p unremarkable cardiac cath (2014) > patient subsequently had panniculectomy/ventral hernia repair in 2018 at [facility] without issue, sinus rhythm on most recent EKG 09/25/20 Morbid obesity Restless leg syndrome Sleep apnea CPAP Surgical History H/O bilateral breast reduction surgery History of abdominal surgery Panniculectomy, ventral hernia repair (03/25/18): Grade view 1, MAC #3, ETT 7.5 at [facility] History of cardiac cath 2014 > no stents (confirmed with [facility] that most recent cardiac cath was 2014) History of section x2 History of cholecystectomy History of colonoscopy History of herniorrhaphy Ventral hernia x2 History of hysterectomy History of tooth extraction History of total knee replacement Right Nausea and vomiting after administration of anesthetic agent Family History Other Kidney stone No family history of adverse response to anesthesia Social History Smoking Status: Never smoker Second Hand Exposure: No; Hx Alcohol Use: No Hx Substance Use: No Preferred Language: Spanish Communication Ability: Effective Spectral Scientist Required: No Beliefs That Will Affect Care: None Current Living Situation: Alone Other Information That Helps Us Care for You: No Feels Safe at Home: Yes Safety Concerns: Feels Safe At This Time Assistive Devices: None Physical Exam Physical Exam: appears uncomfortable/in pain. Eyes: PERRL, conjunctivae normal, anicteric sclerae EOM intact bilaterally ENMT: external ear and nose normal, oropharynx normal Ears: no hearing impairment Neck: trachea midline, no thyromegaly Respiratory: normal respiratory effort; no respiratory distress and does not use accessory muscles Cardiovascular: Rate/Rhythm: regular rate and regular rhythm Gastrointestinal (Abdomen): soft. obese. near recent incision site there is warmth/erythema of skin c/w cellulitis. Skin: no rashes, warm and dry Psychiatric: Orientation: alert, oriented x 3 and cooperative Results & Data ([facility]) Vital Signs (Past 12 Hours) Vital Signs Temp Pulse Resp BP Pulse Ox 06/25/21 07:45 36.7 C 62 18 116/73 96 06/24/21 22:27 36.5 C 59 L 20 149/78 H 96 PG Care Time/CCT Total # of Minutes Spent Total Time Spent with Patient: Total time spent is greater than 50% in coordination of care (as documented) at patient's floor/unit and/or counseling patient: Coding Level of Care Code 56396 Inpt Consult Level 4 Diagnoses Seroma
[2021-06-25] MEDS ORDERED: LACTATED RINGER'S 1,000 ML IV SCH (10:00)
[2021-06-25] MEDS ORDERED: BUPIVACAINE/EPINEPHRINE 0.5% MPF 1:200,000 10 ML VIAL ONE (10:14)
[2021-06-25] MEDS ORDERED: SUCCINYLCHOLINE CHLORIDE 20 MG/ML 10 ML VIAL IV ONE (10:15)
[2021-06-25] MEDS ORDERED: DEXAMETHASONE SOD INJ 4 MG/ML VIAL ONE (10:15)
[2021-06-25] MEDS ORDERED: ONDANSETRON INJ 2 MG/ML 2 ML VIAL ONE (10:15)
[2021-06-25] MEDS ORDERED: PROPOFOL IV EMULSION 10 MG/ML 20 ML VIAL IV ONE ×2 (10:15→10:49)
[2021-06-25] MEDS ORDERED: fentaNYL citrate 100 MCG/2 ML VIAL ONE ×2 (10:16→10:48)
[2021-06-25] MEDS ORDERED: ePHEDrine sulfate 50 MG/ML AMP IV PRN (10:30)
[2021-06-25] MEDS ORDERED: ONDANSETRON INJ 2 MG/ML 2 ML VIAL IV PRN (10:30)
[2021-06-25] MEDS ORDERED: ATROPINE SULFATE 0.1 MG/ML 10ML SYR IV PRN (10:30)
[2021-06-25] MEDS ORDERED: HYDROmorphone INJ 2 MG/ML SYR/VIAL IV PRN (10:30)
--- NOTE | 2021-06-25 10:30 | Anesthesiology Consultation ---
Date of Service June 25, 2021 Assessment & Plan ASA ASA3 Proposed Anesthesia Anesthesia Type: General Risk / Benefits Reviewed With: PT / POA / Parent / Guardian, Accepts Plan and Informed Consent Obtained History Surgery Operation Date: 06/25/21 10:20 Proposed Procedures p Incision and Drainage of Abdominal Wall Abscess - Will Ridley, DO Height/Weight Height: 5 ft 1 in Weight: 141.9 kg Allergies Allergy/AdvReac Type Severity Reaction Status Date / Time Iodinated Contrast Media Allergy Severe Cardiac Verified 06/24/21 10:19 arrest phentermine AdvReac Mild Abdominal Verified 06/24/21 10:19 pain Medications Home Medications Medication Instructions Recorded Confirmed Last Taken furosemide 20 mg tablet (Lasix) 20 mg PO DAILY PRN 02/19/21 06/24/21 Unknown omeprazole 20 mg capsule,delayed 20 mg PO HS 02/19/21 06/24/21 04/24/21 17:00 release sertraline 100 mg tablet 100 mg PO QAM 02/19/21 06/24/21 04/24/21 17:00 hydrocodone 5 mg-acetaminophen 325 1 - 2 tab PO .q4h- q6h PRN #10 tab 04/25/21 06/24/21 Unknown mg tablet albuterol sulfate 90 mcg/actuation 1 puff INHALATION Q4 PRN 06/24/21 06/24/21 Unknown aerosol inhaler (Ventolin HFA) ibuprofen 800 mg tablet 800 mg PO TID PRN 06/24/21 06/24/21 Unknown ondansetron HCl 4 mg tablet 4 mg PO Q6 PRN 06/24/21 06/24/21 Unknown Active Medications Generic Name Dose Route Start Last Admin Trade Name Freq PRN Reason Stop Dose Admin Hydrocodone Bitart/Acetaminophen 1 - 2 tab 06/24/21 14:47 06/24/21 15:48 Hydrocodone/Acetamophen 5/325mg Tab PO 07/08/21 14:46 2 tab Q4H PRN Administration pain Hydromorphone HCl 1 mg 06/24/21 14:47 06/24/21 18:41 Hydromorphone Inj 1 Mg/Ml Syringe IV 07/08/21 14:46 1 mg Q6H PRN Administration Pain Piperacillin Sod/Tazobactam 120 mls @ 30 mls/hr 06/24/21 21:00 06/25/21 09:26 Sod 4.5 gm/ Dextrose IV 07/01/21 20:59 Infused Q8H BETHANIE Infusion Protocol Lactated Ringer's 1,000 mls @ 100 mls/hr 06/24/21 14:47 06/25/21 01:19 Lr IV 07/24/21 14:46 100 mls/hr .Q10H BETHANIE Administration Ondansetron HCl 4 mg 06/24/21 15:28 06/25/21 08:51 Ondansetron 4 Mg Od Tab PO 07/24/21 15:27 4 mg Q6 PRN Administration Nausea Pantoprazole Sodium 40 mg 06/24/21 21:00 06/24/21 22:11 Pantoprazole 40 Mg Tab PO 07/24/21 20:59 40 mg HS BETHANIE Administration Sertraline HCl 100 mg 06/25/21 09:00 06/25/21 08:08 Sertraline Hcl 100 Mg Tablet PO 07/25/21 08:59 100 mg QAM BETHANIE Administration NPO Date Last Intake of Fluids: 06/24/21 Time Last Intake of Fluids: 21:00 Last Intake of Fluids Comment: sips with meds this morning Date Last Intake of Solids: 06/24/21 Time Last Intake of Solids: 17:00 Past Medical History Medical History Anxiety Arthritis GERD (gastroesophageal reflux disease) History of COVID-19 Dx 09/2020 > symptoms at time of cough, dyspnea, fever > resolved Hx of atrial fibrillation without current medication ? a. fib vs "cardiac event" remote hx 10+ years ago, no known recurrence/issues, s/p unremarkable cardiac cath (2014) > patient subsequently had panniculectomy/ventral hernia repair in 2018 at [facility] without issue, sinus rhythm on most recent EKG 09/25/20 Morbid obesity Restless leg syndrome Sleep apnea CPAP Exercise / Class Metabolic Activity II 4-5 Yardwork/Stairs/Walk up hill Past Family History Family History Other Kidney stone No family history of adverse response to anesthesia Past Surgical History Surgical History H/O bilateral breast reduction surgery History of abdominal surgery Panniculectomy, ventral hernia repair (03/25/18): Grade view 1, MAC #3, ETT 7.5 at [facility] History of cardiac cath 2015 > no stents (confirmed with [facility] that most recent cardiac cath was 2014) History of section x2 History of cholecystectomy History of colonoscopy History of herniorrhaphy Ventral hernia x2 History of hysterectomy History of tooth extraction History of total knee replacement Right Nausea and vomiting after administration of anesthetic agent Past Anesthesia History No Hx of Anesthesia Complications and No Family Hx of Anesthesia Complications History of PONV No Hx of PONV and No Hx of Motion Sickness Social History Smoking Status: Never smoker Hx Alcohol Use: No Hx Substance Use: No substance use type: does not use Review of Systems denies fever/cough/ colds/ chest pain/ SOB/ +bayron denies BAYRON Physical Exam Vital Signs Last Vital Signs Temp 37 C 06/25/21 10:12 Pulse 63 06/25/21 10:12 Resp 20 06/25/21 10:12 BP 176/85 H 06/25/21 10:12 Pulse Ox 99 06/25/21 10:12 ENMT Mouth: no TMJ abnormality and no dentition abnormality Thyromental Distance: < 3.5 Finger Breadths Mallampati Class: III Neck neck extension not limited Respiratory normal respiratory effort; no respiratory distress Auscultation: lungs clear to auscultation bilaterally Cardiovascular Rate/Rhythm: regular rate and regular rhythm Neurologic moves all extremities Psychiatric Orientation: alert and oriented x 3 Testing Laboratory Results 06/25/21 06:31 06/24/21 Unknown Urine Color Dark Yellow 06/24/21 20:53 Urine Appearance Clear (Clear) 06/24/21 20:53 Urine pH 6.5 (4.5-7.5) 06/24/21 20:53 Ur Specific [place] 1.022 (1.000-1.030) 06/24/21 20:53 Urine Protein Negative (Negative) 06/24/21 20:53 Urine Glucose (UA) Negative (Negative) 06/24/21 20:53 Urine Ketones Trace (Negative) H 06/24/21 20:53 Urine Nitrite Negative (Negative) 06/24/21 20:53 Ur Leukocyte Esterase Negative (Negative) 06/24/21 20:53
[2021-06-25] MEDS ORDERED: KETAMINE 50 MG/5 ML SYRINGE ONE (10:47)
[2021-06-25] MEDS ORDERED: GLYCOPYRROLATE 0.2 MG/ML VIAL ONE ×2 (10:50)
[2021-06-25] MEDS ORDERED: METOCLOPRAMIDE HCL INJ 5 MG/ML 2 ML VIAL ONE (10:55)
[2021-06-25] MEDS: fentaNYL citrate 100 MCG/2 ML VIAL IV PRN ×2 (11:33→11:38)
--- NOTE | 2021-06-25 11:57 | Anesthesiology Progress Note ---
Date of Service June 25, 2021 Anesthesia Post Procedure Vital Signs Vital Signs: Temp Pulse Pulse Pulse Resp BP BP 06/25/21 11:55 36.2 C L 81 14 06/25/21 11:45 85 20 06/25/21 11:35 85 12 06/25/21 11:25 90 16 06/25/21 11:17 36.1 C L 99 H 12 06/25/21 10:12 37 C 63 20 06/25/21 07:45 36.7 C 62 18 06/24/21 22:27 36.5 C 59 L 20 06/24/21 14:52 37.2 C 66 18 119/72 06/24/21 14:14 77 18 140/74 06/24/21 12:57 74 20 139/75 06/24/21 12:30 76 16 06/24/21 12:00 74 15 BP Pulse Ox 06/25/21 11:55 141/79 H 98 06/25/21 11:45 147/75 H 97 06/25/21 11:35 153/83 H 100 06/25/21 11:25 151/87 H 100 06/25/21 11:17 144/82 H 92 06/25/21 10:12 176/85 H 99 06/25/21 07:45 116/73 96 06/24/21 22:27 149/78 H 96 06/24/21 14:52 99 06/24/21 14:14 97 06/24/21 12:57 99 06/24/21 12:30 96 06/24/21 12:00 95 Pain Intensity Abdomen: Pain Intensity: 5 Transfer of Care Handoff Completed per policy Notes Mental Status: alert / awake / arousable and participated in evaluation Patient Amnestic to Procedure: Yes Nausea / Vomiting: adequately controlled Pain: adequately controlled Airway Patency, RR, SpO2: stable & adequate BP & HR: stable & adequate Hydration State: stable & adequate Anesthetic Complications: no major complications apparent and Pt Satisfied with anesthetic care
[2021-06-25] MEDS ORDERED: HYDROmorphone INJ 0.5 MG/0.5 ML SYR IV PRN (12:23)
--- NOTE | 2021-06-25 14:03 | Operative Report ---
PG Post Operative Report Pre & Post Diagnosis Operation Date: 06/25/21 10:20 Pre-Op Diagnosis: Infected recurrent seroma Post-Op Diagnosis: Infected recurrent seroma I identified the patient and participated in the time-out.: Yes Procedure Operation Date: 06/25/21 10:20 Actual Procedures p Incision and Drainage of Abdominal Wall Abscess(Not Applicable) - Will Ridley DO Surgeon Will Ridley DO Hose Tender maggi Obrien Estimated Blood Loss 1 Findings Consistent with Post-Op Diagnosis Specimens seroma fluid for culture Description of Procedure After informed consent was obtained the patient was taken to the operating room and placed in supine position. After successful intubation the abdomen was sterilely prepped and draped in usual fashion. A 15 blade scalpel was used to open her old scar line in the lower abdomen. We used blunt finger fractionation and a Nichole clamp to enter the seroma pocket. We immediately encountered thin serous type fluid. There was no foul odor. There was no purulence to it. We did take a sample and sent for culture and Gram stain. We suctioned out several 100 cc's of fluid. We then thoroughly irrigated the entire cavity. A 19 Nepali Trevor drain was inserted into the seroma cavity and secured to the skin using 2- 0 nylon. A sterile dressing was applied. The patient was awakened extubated transferred recovery in stable condition. My physician chef assistant was present for the entire case and helped prep the patient. Helped with exposure as well as drain placement and dressing placement. I attest to the content of the Intraoperative Record and any orders documented therein. Any exceptions are noted below.
[2021-06-25] MEDS: HYDROCODONE/ACETAMOPHEN 5/325MG TAB PO PRN (16:56)
[2021-06-25] MEDS: PANTOprazole 40 MG TAB PO SCH (20:24)
[2021-06-26] MEDS: LACTATED RINGER'S 1,000 ML IV SCH (00:30)
[2021-06-26] MEDS: HYDROCODONE/ACETAMOPHEN 5/325MG TAB PO PRN ×4 (02:08→20:08)
[2021-06-26] MEDS: IBUPROFEN 800 MG TAB PO PRN ×2 (05:46→23:25)
[2021-06-26] MEDS: PIPERACILLIN/TAZOBACTAM 4.5 GM in DEXTROSE 5% 100 ML IV SCH ×3 (05:56→20:09)
[2021-06-26] MEDS: ONDANSETRON INJ 2 MG/ML 2 ML VIAL IV PRN (06:03)
[2021-06-26 06:38] LABS: Creatinine Clr Calc Pharmacy 124.5 ml/min; Est GFR (African American) 111.6 ml/min; Est GFR (Non-African American) 96.3 ml/min
[2021-06-26] MEDS: SERTRALINE HCL 100 MG TABLET PO SCH (07:28)
--- NOTE | 2021-06-26 09:13 | Surgery Progress Note ---
Date of Service June 26, 2021 Assessment & Plan (1) Seroma: Plan: doing better but not ready for d/c will advance diet potential d/c tomorrow or thursday fluid cx pending. Admission and Anticipated Discharge Date Admission Date: June 24, 2021 Subjective pt seen. still having some "stinging" at surgical site.... improved from before surgery however. Physical Exam Physical Exam: alert. mild distress secondary to discomfort. NATALY with small amount of pink/serous output. redness decreased on lower abdomen. Results & Data ([facility]) Vital Signs (Past 12 Hours) Vital Signs Temp Pulse Resp BP BP Pulse Ox 06/26/21 08:53 36.8 C 65 22 185/70 H 93 06/26/21 07:46 36.3 C L 53 L 18 183/70 H 97 06/26/21 02:51 36.6 C 57 L 18 123/72 94 06/25/21 22:46 36.6 C 60 18 130/78 98 PG Care Time/CCT Total # of Minutes Spent Total Time Spent with Patient: Total time spent is greater than 50% in coordination of care (as documented) at patient's floor/unit and/or counseling patient: Coding Level of Care Code None Diagnoses Seroma
--- NOTE | 2021-06-26 13:04 | Hospitalist Consultation ---
Date of Consultation June 26, 2021 Assessment & Plan (1) Hypertension: Patient has had history of hypertension in the past. Has been off losartan for years. It appears her hypertension has been controlled with lifestyle changes. She follows with Dr. Luis Eduardo Lutz and sees her PCP every 3 months. Eventhough BP is elevated, will hold off restarting the ARB for now but will stop IVF as she was on LR 100 ml/hr. Recommend improving pain control and minimizing IV fluid intake. History of Present Illness Reason for Consultation: Hypertension management Attending Physician: Will Ridley DO History of Present Illness 60 yo female with PMH described below is in the hospital with an infected seroma: S/P Incision and Drainage of abdominal wall. Hospitalist consult was called due to elevated blood pressure. Patient denies any new symptoms today except for pain at the surgical site. Allergies Allergy/AdvReac Type Severity Reaction Status Date / Time Iodinated Contrast Media Allergy Severe Cardiac Verified 06/24/21 10:19 arrest phentermine AdvReac Mild Abdominal Verified 06/24/21 10:19 pain Home Medications Medication Instructions Recorded Confirmed Type furosemide 20 mg tablet (Lasix) 20 mg PO DAILY PRN 02/19/21 06/24/21 History omeprazole 20 mg capsule,delayed 20 mg PO HS 02/19/21 06/24/21 History release sertraline 100 mg tablet 100 mg PO QAM 02/19/21 06/24/21 History hydrocodone 5 mg-acetaminophen 325 1 - 2 tab PO .q4h- q6h PRN #10 tab 04/25/21 06/24/21 Rx mg tablet albuterol sulfate 90 mcg/actuation 1 puff INHALATION Q4 PRN 06/24/21 06/24/21 History aerosol inhaler (Ventolin HFA) ibuprofen 800 mg tablet 800 mg PO TID PRN 06/24/21 06/24/21 History ondansetron HCl 4 mg tablet 4 mg PO Q6 PRN 06/24/21 06/24/21 History Patient History Medical History Anxiety Arthritis GERD (gastroesophageal reflux disease) History of COVID-19 Dx 09/2020 > symptoms at time of cough, dyspnea, fever > resolved Hx of atrial fibrillation without current medication ? a. fib vs "cardiac event" remote hx 10+ years ago, no known recurrence/issues, s/p unremarkable cardiac cath (2014) > patient subsequently had panniculectomy/ventral hernia repair in 2018 at [facility] without issue, sinus rhythm on most recent EKG 09/25/20 Morbid obesity Restless leg syndrome Sleep apnea CPAP Surgical History H/O bilateral breast reduction surgery History of abdominal surgery Panniculectomy, ventral hernia repair (03/25/18): Grade view 1, MAC #3, ETT 7.5 at [facility] History of cardiac cath 2014 > no stents (confirmed with [facility] that most recent cardiac cath was 2014) History of section x2 History of cholecystectomy History of colonoscopy History of herniorrhaphy Ventral hernia x2 History of hysterectomy History of incision and drainage (06/25/21) Incision and Drainage of Abdominal Wall Abscess Dr. Ridley 06-25-2021 History of tooth extraction History of total knee replacement Right Nausea and vomiting after administration of anesthetic agent Family History Other Kidney stone No family history of adverse response to anesthesia Social History Smoking Status: Never smoker Second Hand Exposure: No; Hx Alcohol Use: No Hx Substance Use: No Preferred Language: Lithuanian Communication Ability: Effective Rn Community Health Required: No Beliefs That Will Affect Care: None Current Living Situation: Alone Other Information That Helps Us Care for You: No Feels Safe at Home: Yes Safety Concerns: Feels Safe At This Time Assistive Devices: CPAP Review of Systems Constitutional: no fever and no sweats Eyes: no blind spots and no diplopia Ear, Nose, Mouth, Throat: no ear pain and no ear trauma Respiratory: no cough and no change in sputum Cardiovascular: no chest pain Gastrointestinal: no bloating and no nausea Genitourinary: no dysuria Musculoskeletal: no loss of height Integumentary: no acne Neurologic: no falls Psychiatric: no behavioral changes, no hopelessness and no change in appetite Endocrine: no fatigue and no polydipsia Hematologic / Lymphatic: no easy bleeding and no coagulopathy Allergy / Immunological: no lip swelling Physical Exam Constitutional: WD/WN, vitals as above + obese Eyes: PERRL, conjunctivae normal, anicteric sclerae ENMT: external ear and nose normal, oropharynx normal Neck: trachea midline, no thyromegaly Respiratory: normal respiratory effort, lungs clear to auscultation Cardiovascular: RRR, no murmur, no edema Gastrointestinal (Abdomen): normal bowel sounds, soft, nontender, no hepatosplenomegaly Musculoskeletal: no cyanosis or clubbing, extremities motor strength 5/5 Skin: no rashes, warm and dry Neurologic: PERRL, EOMI, accommodation nl, no face palsy, no dysarthria Psychiatric: A+Ox3, euthymic affect Lymphatic: no cervical or axillary lymphadenopathy Results & Data Results & Data ([facility]) Vital Signs (Past 12 Hours) Vital Signs Temp Pulse Resp BP BP Pulse Ox 06/26/21 11:15 36.5 C 59 L 18 187/74 H 92 06/26/21 08:53 36.8 C 65 22 185/70 H 93 06/26/21 07:46 36.3 C L 53 L 18 183/70 H 97 06/26/21 02:51 36.6 C 57 L 18 123/72 94 PG Care Time/CCT Total # of Minutes Spent Total Time Spent with Patient: Total time spent is greater than 50% in coordination of care (as documented) at patient's floor/unit and/or counseling patient: Coding Level of Care Code 01136 Inpt Consult Level 3 Diagnoses Hypertension I10
[2021-06-26] MEDS: PANTOprazole 40 MG TAB PO SCH (20:08)
[2021-06-27] MEDS: PIPERACILLIN/TAZOBACTAM 4.5 GM in DEXTROSE 5% 100 ML IV SCH ×2 (05:07→12:42)
[2021-06-27] MEDS: HYDROCODONE/ACETAMOPHEN 5/325MG TAB PO PRN ×2 (05:12→20:01)
[2021-06-27] MEDS: ONDANSETRON INJ 2 MG/ML 2 ML VIAL IV PRN ×2 (05:47→11:48)
[2021-06-27] MEDS: SERTRALINE HCL 100 MG TABLET PO SCH (08:39)
--- NOTE | 2021-06-27 10:46 | Surgery Progress Note ---
Date of Service June 27, 2021 Assessment & Plan (1) Seroma: Plan: Clinically improving. We will keep her 1 more night. Appreciate medicine's assistance. Plan for discharge tomorrow pending no changes. She will need to go home with the drain in place as well as antibiotics. We will continue IV antibiotics until her discharge. Admission and Anticipated Discharge Date Admission Date: June 24, 2021 Subjective pt seen. She is feeling better each day however continues to have some burning on her lower abdomen/pannus. Again this is improving. She is a little concerned about some of the dizziness. She is also somewhat concerned about her hypertension. Physical Exam Constitutional: WD/WN, vitals as above no acute distress and not ill appearing Eyes: PERRL, conjunctivae normal, anicteric sclerae EOM intact bilaterally ENMT: external ear and nose normal, oropharynx normal Ears: no hearing impairment Neck: trachea midline, no thyromegaly Respiratory: normal respiratory effort; no respiratory distress and does not use accessory muscles Cardiovascular: Rate/Rhythm: regular rate and regular rhythm Gastrointestinal (Abdomen): Soft. Mild tenderness near the drain. The erythema is almost completely resolved at this point. There is only a small amount of serous fluid in the drain. Skin: no rashes, warm and dry Psychiatric: Orientation: alert, oriented x 3 and cooperative Results & Data ([facility]) Vital Signs (Past 12 Hours) Vital Signs Temp Pulse Resp BP BP Pulse Ox 06/27/21 07:12 36.6 C 56 L 17 161/75 H 96 06/27/21 04:59 166/93 H 06/26/21 23:05 168/90 H 06/26/21 23:00 36.8 C 64 16 103/63 96 PG Care Time/CCT Total # of Minutes Spent Total Time Spent with Patient: Total time spent is greater than 50% in coordination of care (as documented) at patient's floor/unit and/or counseling patient: Coding Level of Care Code None Diagnoses Seroma
[2021-06-27] MEDS ORDERED: ONDANSETRON 4 MG OD TAB PO PRN (16:04)
[2021-06-27] MEDS: AMOXICILLIN/CLAVULANATE 875 MG TAB PO SCH (17:47)
[2021-06-27] MEDS: PANTOprazole 40 MG TAB PO SCH (20:01)
--- NOTE | 2021-06-27 22:02 | Hospitalist Progress Note ---
Date of Service June 27, 2021 Assessment & Plan (1) Hypertension: Plan: It appears blood pressure cuff was too tight. Once patient had a cuff that fit her, her blood pressure readings have improved. Today she is elevated at 160 systolic, but will continue to monitor. May be attributed to her IVFs. At the moment, will recommend holding off starting BP meds as she has regular followups with her PCP and would not want to overtreat her BP. Will recommend at discharge to have patient followup with PCP to recheck blood pressure. Will sign off case for now. Please contact me for any questions Thank you for allowing me to participate in the care of this patient. Admission and Anticipated Discharge Date Admission Date: June 24, 2021 Subjective Patient reports feeling at moments flushed and dizzy when she stands up. However, shse states she is able to ambulate and go to the bathroom on her own. She also reports she does not need physical therapy. She reports she will like to see her PCP after discharge. Review of Systems Review of Systems: All systems reviewed & are unremarkable except as noted in HPI & below Physical Exam Physical Exam: Constitutional: WD/WN, vitals as above + obese Eyes: PERRL, conjunctivae normal, anicteric sclerae ENMT: external ear and nose normal, oropharynx normal Neck: trachea midline, no thyromegaly Respiratory: normal respiratory effort, lungs clear to auscultation Cardiovascular: RRR, no murmur, no edema Gastrointestinal (Abdomen): normal bowel sounds, soft, nontender, no hepatosplenomegaly Musculoskeletal: no cyanosis or clubbing, extremities motor strength 5/5 Skin: no rashes, warm and dry Neurologic: PERRL, EOMI, accommodation nl, no face palsy, no dysarthria Psychiatric: A+Ox3, euthymic affect Lymphatic: no cervical or axillary lymphadenopathy Results & Data Results & Data ([facility]) Vital Signs (Past 12 Hours) Vital Signs Temp Pulse Resp BP BP Pulse Ox 06/27/21 13:57 36.9 C 61 18 116/67 96 06/27/21 11:51 121/70 PG Care Time/CCT Total # of Minutes Spent Total Time Spent with Patient: Total time spent is greater than 50% in coordination of care (as documented) at patient's floor/unit and/or counseling patient: Coding Level of Care Code 72964 Subseq Hosp Care Lvl 2 Diagnoses Hypertension I10
[2021-06-28] MEDS: HYDROCODONE/ACETAMOPHEN 5/325MG TAB PO PRN (02:41)
[2021-06-28 07:04] LABS: Creatinine Clr Calc Pharmacy 103.5 ml/min; Est GFR (African American) 96.6 ml/min; Est GFR (Non-African American) 83.3 ml/min
--- NOTE | 2021-06-28 08:45 | Surgery Progress Note ---
Date of Service June 28, 2021 Assessment & Plan (1) Seroma: Plan: ok for d/c on augmentin keep NATALY oral augmentin f/u in 1 week. Admission and Anticipated Discharge Date Admission Date: June 24, 2021 Subjective pt seen. feeling much better. wants to go home. Physical Exam Physical Exam: alert. nad abd: soft. no erythema. NATALY minimal/serous. Results & Data ([facility]) Vital Signs (Past 12 Hours) Vital Signs Temp Pulse Resp BP Pulse Ox 06/28/21 07:34 37.2 C 57 L 18 151/76 H 94 06/27/21 22:07 36.6 C 61 16 145/84 H 97 PG Care Time/CCT Total # of Minutes Spent Total Time Spent with Patient: Total time spent is greater than 50% in coordination of care (as documented) at patient's floor/unit and/or counseling patient: Coding Level of Care Code None Diagnoses Seroma
[2021-06-28] MEDS: AMOXICILLIN/CLAVULANATE 875 MG TAB PO SCH (08:48)
[2021-06-28] MEDS: SERTRALINE HCL 100 MG TABLET PO SCH (08:48)
--- NOTE | 2021-06-28 09:11 | Discharge Summary ---
Date of Service June 28, 2021 Principal Diagnosis Abdominal wall seroma Discharge Exam Constitutional WD/WN, vitals as above Gastrointestinal (Abdomen) Inspection/Auscultation: + abdominal surgical drain present (approx 30 cc per shift serous) Percussion/Palpation: abdomen soft Discharge Data Allergies Allergy/AdvReac Type Severity Reaction Status Date / Time Iodinated Contrast Media Allergy Severe Cardiac Verified 06/24/21 10:19 arrest phentermine AdvReac Mild Abdominal Verified 06/24/21 10:19 pain Consultations 06/24/21 12:52 Consult General Surgery Stat 06/24/21 13:07 ED Decision to Admit Stat 06/26/21 10:53 Consult Hospitalist Routine Procedures Performed Operation Date: 06/25/21 10:20 Actual Procedures p Incision and Drainage of Abdominal Wall Abscess(Not Applicable) - Will Ridley DO Ordered Studies 06/24/21 10:16 CT abd pelvis wo con Stat Hospital Course (1) Seroma: 60 y/o female with h/o panniculectomy and hernia repair 3 years ago and recent drainage of seroma presented to the ER with abdominal pain. White count was 8,[address] showed 12 cm abdominal wall fluid collection. She was admitted to the covering surgical service and started on IV antibiotics. She was then taken to the OR the next day by Dr. Ridley for drainage and and drain placement. IV antibiotics were continued over the next two days although gram stain shows rare gram positive cocci and cultures no growth to date. On POD 3 she was stable for discharge with the drain and oral antibiotics. Total Time Total Time Spent Total Time Spent (In Minutes): 20 Discharge Plan Discharge Items Patient Disposition: Home - Self-Care Reason For Visit: VOMITING, LOWER ABDOMINAL PAIN Discharge Diagnosis: drainage of seroma Activity: As commented below Bathing Comment: can shower Driving/Machine Use: Resume 1 day after discharge Non-emergency contact: Surgeon Call non-emergency contact if: you have any medication questions, your pain is not controlled, your pain is unusual for you, you have a fever, your temperature is above 101.5 and your wound has increased redness Follow-up/Referrals: Will Ridley DO [Surgeon] - 07/05/21 8:45 am (Call to make an appt in 1 week) PCP,NO [Primary Care Provider] - Diet: Regular Addtl Attending Provider Instructions: Pending Studies at Discharge: No Stand-Alone Forms: My [facility], Smoking Cessation Medications and DC Order Prescriptions: New hydrocodone-acetaminophen 5-325 mg tablet 1 - 2 tab PO .Q4-6h MDD 6 tabs PRN (Reason: pain, initial therapy) Qty: 15 RF: 0 amoxicillin-pot clavulanate [Augmentin] 875-125 mg tablet 1 tab PO BID Qty: 14 RF: 0 Continued omeprazole 20 mg capsule,delayed release(DR/EC) 20 mg PO HS RF: 0 furosemide [Lasix] 20 mg tablet 20 mg PO DAILY PRN (Reason: edema) RF: 0 sertraline 100 mg tablet 100 mg PO QAM RF: 0 ibuprofen 800 mg tablet 800 mg PO TID PRN (Reason: Pain) RF: 0 ondansetron HCl 4 mg tablet 4 mg PO Q6 PRN (Reason: Nausea) RF: 0 albuterol sulfate [Ventolin HFA] 90 mcg/actuation HFA aerosol inhaler 1 puff INHALATION Q4 PRN (Reason: Shortness Of Breath Or Wheezing) RF: 0 hydrocodone-acetaminophen 5-325 mg tablet 1 - 2 tab PO .q4h- q6h PRN (Reason: pain, for initial therapy, max 6 tabs per day ) Qty: 10 RF: 0 Discharge Orders: Discharge Order (Routine); Ordered 06/28/21 Ordered By: Chaitanya Obrien Jr Admission Data Admit Date/Time: 06/24/21 13:39 Attending Provider: Will Ridley Admit Provider: Pete Mark Primary Care Provider: PCP,NO Other Providers: Pete Mark ; Tawanda Phillips ; Daniela Farnsworth ; Trav Osorio ; Julio C Singletary ; Gonzalo Nicholson ; Leroy Underwood ; Edmundo Sánchez ; Jorje Campa ; Itzel Melgar ; Leda Harden ; Erich Scott ; Coco Varela ; Jane Beckwith ; Andre Kong ; Jamie Thomas ; Cale Valencia ; Daniela Alvarez ; Sukhdev Hand ; Bertram Damon ; Puneet Summers ; Trav Tompkins ; Dariusz Lewis ; Ashley Kebede ; Jack Rock ; Coco Slaughter ; Olu Pablo ; Juwan Manning ; Ricardo Palm Coding Level of Care Code D/C DAY MANAGEMENT <30 MINS Diagnoses Seroma
== END 2021-06-28 11:10 | disposition home or self-care (01) | DRG 908 ==
LOC: ED 08:56 → 3N 13:39 → SUATTDRO 13:39 → 3N 14:26
DX: I10 Essential (primary) hypertension; Z68.43 Body mass index [BMI] 50.0-59.9, adult; Z86.16 Personal history of COVID-19; L02.211 Cutaneous abscess of abdominal wall; E66.01 Morbid (severe) obesity due to excess calories; K91.872 Postprocedural seroma of a digestive system organ or structure following a digestive system procedure; K21.9 Gastro-esophageal reflux disease without esophagitis